=== PATIENT | female | born 1975 | race Caucasian/White ===

== ENCOUNTER 2016-08-23 06:19 | Emergency (ER) | payer SELFPAY ==
[2016-08-23] MEDS ORDERED: Ketorolac 30 MG/ML SDV IVPUSH ONE (06:30)
--- NOTE | 2016-08-23 06:38 | EDM.PDOC ---
<Edward Colon - Last Filed: 08/23/16 06:33> ED HPI GENERAL MEDICAL PROBLEM - General Chief Complaint: Lower Extremity Injury/Pain Stated Complaint: HIP PAIN Time Seen by Provider: 08/23/16 06:33 Source of Information: Reports: Patient - History of Present Illness INITIAL COMMENTS - FREE TEXT/NARRATIVE: HISTORY AND PHYSICAL: History of present illness: [] Patient presents tearful and crying with 10 out of 10 right hip pain which awoke her from sleep, she denies injury or trauma Patient states she has had left and right hip pain for some time , generally requiring chiropractic adjustment, she feels as if her right hip may be"out of place"however she does have full range of motion of the hip. As no redness warmth or lesion associated with the hip, on exam she is tender over the right sacrum, at this time it is hard for her to define where the pain is originating from she denies any radiation down either leg, no footdrop or saddle anesthesia bowel or urine symptoms. She has taken 800 mg of ibuprofen last night prior to going to bed, pain was 4/ 10 at that time Again no trauma or injury denies chronic illness or disease Review of systems: As per history of present illness and below otherwise all systems reviewed and negative. Past medical history: As per history of present illness and as reviewed below otherwise noncontributory. Surgical history: As per history of present illness and as reviewed below otherwise noncontributory. Social history: No reported history of drug or alcohol abuse. Family history: As per history of present illness and as reviewed below otherwise noncontributory. Physical exam: HEENT: Atraumatic, normocephalic, pupils reactive, negative for conjunctival pallor or scleral icterus, mucous membranes moist, throat clear, neck supple, nontender, trachea midline. Lungs: Clear to auscultation, breath sounds equal bilaterally, chest nontender. Heart: S1S2, regular, negative for clicks, rubs, or JVD. Abdomen: Soft, nondistended, nontender. Negative for masses or hepatosplenomegaly. Negative for costovertebral tenderness. Pelvis: Stable nontender. Genitourinary: Deferred. Rectal: Deferred. Extremities: Atraumatic, negative for cords or calf pain. Neurovascular unremarkable. Neuro: Awake, alert, oriented. Cranial nerves II through XII unremarkable. Cerebellum unremarkable. Motor and sensory unremarkable throughout. Exam nonfocal. Diagnostics: [] Lab as below Pelvis 2 views Therapeutics: [] Toradol 30 mg IV Impression: [] Right hip pain Definitive disposition and diagnosis as appropriate pending reevaluation and review of above. bilateral hip Pain Score (Numeric/FACES): 10 - Related Data Allergies Allergy/AdvReac Type Severity Reaction Status Date / Time No Known Allergies Allergy Verified 08/23/16 06:24 Home Meds: Home Meds . [No Known Home Meds] 08/23/16 [History] Course - Vital Signs Last Recorded V/S: Last Vital Signs Temp 36.9 C 08/23/16 06:25 Pulse 79 08/23/16 06:25 Resp 20 08/23/16 06:25 BP 129/65 08/23/16 06:25 Pulse Ox 99 08/23/16 06:25 - Orders/Labs/Meds Orders: Active Orders 24 hr Category Date Time Status Pelvis 1V or 2V [CR] Stat Exams 08/23/16 06:29 Taken LUPUS ANTICOAGULANT PANEL [REF] Stat Lab 08/23/16 07:00 Ordered UA W/MICROSCOPIC [URIN] Stat Lab 08/23/16 06:44 Ordered HYDROmorphone [Dilaudid] Med 08/23/16 07:43 Once 1 mg IVPUSH ONETIME ONE Ondansetron [Zofran] Med 08/23/16 07:44 Once 4 mg IVPUSH ONETIME ONE Medication Orders Hydromorphone HCl (Dilaudid) 1 mg IVPUSH ONETIME ONE Stop: 08/23/16 07:44 Ondansetron HCl (Zofran) 4 mg IVPUSH ONETIME ONE Stop: 08/23/16 07:45 Labs: Laboratory Tests 08/23/16 08/23/16 08/23/16 Range/Units 06:24 06:24 06:24 WBC 8.52 (4.0-11.0) K/uL RBC 4.41 (4.30-5.90) M/uL Hgb 14.0 (12.0-16.0) g/dL Hct 41.8 (36.0-46.0) % MCV 94.8 (80.0-98.0) fL MCH 31.7 (27.0-32.0) pg MCHC 33.5 (31.0-37.0) g/dL RDW Std Deviation 46.2 (28.0-62.0) fl RDW Coeff of Alexus 13 (11.0-15.0) % Plt Count 221 (150-400) K/uL MPV 10.20 (7.40-12.00) fL Neut % (Auto) 66.4 (48.0-80.0) % Lymph % (Auto) 25.0 (16.0-40.0) % [place] % (Auto) 5.9 (0.0-15.0) % Eos % (Auto) 2.1 (0.0-7.0) % Baso % (Auto) 0.6 (0.0-1.5) % Neut # (Auto) 5.7 (1.4-5.7) K/uL Lymph # (Auto) 2.1 (0.6-2.4) K/uL [place] # (Auto) 0.5 (0.0-0.8) K/uL Eos # (Auto) 0.2 (0.0-0.7) K/uL Baso # (Auto) 0.1 (0.0-0.1) K/uL Nucleated RBC % 0.0 /100WBC Nucleated RBCs # 0 K/uL Sodium 141 (136-146) mmol/L Potassium 3.9 (3.5-5.1) mmol/L Chloride 112 H (98-110) mmol/L Carbon Dioxide 21 (21-31) mmol/L BUN 9 (6.0-23.0) mg/dL Creatinine 0.7 (0.6-1.5) mg/dL Est Cr Clr Drug Dosing 90.41 mL/min Estimated GFR (MDRD) > 60.0 ml/min Glucose 97 (60-110) mg/dL Calcium 8.4 L (8.8-10.8) mg/dL Total Bilirubin 0.4 (0.1-1.5) mg/dL AST 14 (5-40) IU/L ALT 16 (8-54) IU/L Alkaline Phosphatase 56 (40-150) C-Reactive Protein 0.03 (0.0-0.5) mg/dL Total Protein 6.5 (6.0-8.0) g/dL Albumin 3.9 (3.5-5.0) g/dL Globulin 2.6 (2.0-3.5) g/dL Albumin/Globulin Ratio 1.5 (1.3-2.8) HCG, Qual NEGATIVE (NEG) Meds: Medications Generic Name Dose Route Start Last Admin Trade Name Freq PRN Reason Stop Dose Admin Hydromorphone HCl 1 mg 08/23/16 07:43 Dilaudid IVPUSH 08/23/16 07:44 ONETIME ONE Ondansetron HCl 4 mg 08/23/16 07:44 Zofran IVPUSH 08/23/16 07:45 ONETIME ONE Discontinued Medications Generic Name Dose Route Start Last Admin Trade Name Freq PRN Reason Stop Dose Admin Ketorolac Tromethamine 30 mg 08/23/16 06:30 08/23/16 06:36 Toradol IVPUSH 08/23/16 06:31 30 mg ONETIME ONE Administration Departure - Departure Disposition: Home, Self-Care 01 Clinical Impression: Sciatica, Hip pain - Discharge Information Forms: ED Department Discharge Additional Instructions: The following information is given to patients seen in the emergency department who are being discharged to home. This information is to outline your options for follow-up care. We provide all patients seen in our emergency department with a follow-up referral. The need for follow-up, as well as the timing and circumstances, are variable depending upon the specifics of your emergency department visit. If you don't have a primary care physician on staff, we will provide you with a referral. We always advise you to contact your personal physician following an emergency department visit to inform them of the circumstance of the visit and for follow-up with them and/or the need for any referrals to a consulting specialist. The emergency department will also refer you to a specialist when appropriate. This referral assures that you have the opportunity for followup care with a specialist. All of these measure are taken in an effort to provide you with optimal care, which includes your followup. Under all circumstances we always encourage you to contact your private physician who remains a resource for coordinating your care. When calling for followup care, please make the office aware that this follow-up is from your recent emergency room visit. If for any reason you are refused follow-up, please contact the [facility] emergency department at and asked to speak to the emergency department charge nurse. [facility] Professional Building [address] [place] [address], [address] [place] [address] Hydrocodone Naprosyn Medrol as prescribed followup primary medical doctor orthopedic surgery above call to schedule appointment return as needed as discussed - My Orders Last 24 Hours: My Active Orders 08/23/16 07:00 LUPUS ANTICOAGULANT PANEL [REF] Stat 08/23/16 07:43 HYDROmorphone [Dilaudid] 1 mg IVPUSH ONETIME ONE 08/23/16 07:44 Ondansetron [Zofran] 4 mg IVPUSH ONETIME ONE - Assessment/Plan Last 24 Hours: My Active Orders 08/23/16 07:00 LUPUS ANTICOAGULANT PANEL [REF] Stat 08/23/16 07:43 HYDROmorphone [Dilaudid] 1 mg IVPUSH ONETIME ONE 08/23/16 07:44 Ondansetron [Zofran] 4 mg IVPUSH ONETIME ONE <Tacho Patel - Last Filed: 08/23/16 07:48> Review of Systems - Review of Systems Review Of Systems: ROS reveals no pertinent complaints other than HPI. Trauma Exam - Physical Exam Exam: See Below (See dictation) Course - Vital Signs Text/Narrative:: Emergency department course was unremarkable patient's CBC and chemistry were unremarkable x-ray of her pelvis was negative for any fracture dislocation or other acute finding I discussed with patient her recent history she states she didn't have a work out recently that was quite extensive and may have aggravated her hip at that time her pain on physical exam now does seem to be more localized over her sciatic notch on the right neurovascular exam is unremarkable patient is given Dilaudid and Zofran she is advised to followup and given her primary medical doctor in or call for referral she'll be discharged on hydrocodone Medrol Dosepak and Naprosyn to be used as prescribed she is to return as needed as discussed Departure - Departure Time of Disposition: 07:46 Condition: good
[2016-08-23 07:15] LABS: CHLORIDE,CL 112 mmol/L (98-110); SODIUM,NA 141 mmol/L (136-146)
[2016-08-23] MEDS ORDERED: HYDROmorphone 1 MG/ML Syringe IVPUSH ONE (07:43)
[2016-08-23] MEDS ORDERED: Ondansetron 4 MG/2 ML SDV IVPUSH ONE (07:44)
[2016-08-23 08:43] VITALS: BP 112/58
--- NOTE | 2016-08-24 13:53 | CR ---
EXAM DATE: 08/23/16 PATIENT'S AGE: 41 Patient: NADER SINGH Facility: [place], [place] Site . Site : 1975 Study: XRay Pelvis [id number]/[id number] 7:25:48 AM Ordering Physician: Lucian Leon Final Report: HISTORY: Bilateral hip pain. No known injury. Technique: Frontal view of the pelvis. Comparison: None. Findings: Hip joint space is preserved bilaterally. No fracture. Pubic symphysis and sacroiliac joints are maintained. No pathologic calcifications. Impression: Unremarkable radiograph of the pelvis. Normal hip joints. Dictated by Edward Coronel MD @ Aug 23 2016 7:34AM (Electronic Signature) Report Signed by Proxy. [facility] CRIMINALLY INSANEKirsty
== END 2016-08-23 08:38 | disposition home or self-care (01) ==
LOC: MW.ED 06:19
DX: M54.30 Sciatica, unspecified side (principal); M25.551 Pain in right hip
CPT/HCPCS: 36415; 72170; 80053; 81001; 84703; 85025; 85613; 85730; 86140; 96374; 96375; 99284; J1170; J1885; J2405

== ENCOUNTER 2017-09-10 11:40 | Emergency (ER) | payer SELFPAY ==
--- NOTE | 2017-09-10 12:26 | EDM.PDOC ---
ED HPI GENERAL MEDICAL PROBLEM - General Chief Complaint: Genitourinary Problem Stated Complaint: URINARY ISSUES Time Seen by Provider: 09/10/17 11:41 Source of Information: Reports: Patient - History of Present Illness INITIAL COMMENTS - FREE TEXT/NARRATIVE: HISTORY AND PHYSICAL: History of present illness: 42-year-old female presenting emergency department with chief complaint of dysuria 1 day. Patient states that 2 days ago she began to have some mild symptoms of dysuria and urgency. She drank plenty of water and her symptoms seemed to subside. Last night she states that she was out and drank a large amount of alcohol and thus became very dehydrated and this morning she had increased burning with urination as well as some mild lower abdominal pain. She has had urinary tract infections in the past but many years ago. Symptoms are similar. She denies any fever, flank pain, history of kidney infections or stones. Otherwise she is feeling her normal self. Patient currently denies any chest pain, palpitations, shortness of breath, syncopal episodes, focal neurologic deficits. Review of systems: As per history of present illness and below otherwise all systems reviewed and negative. Past medical history: As per history of present illness and as reviewed below otherwise noncontributory. Surgical history: As per history of present illness and as reviewed below otherwise noncontributory. Social history: No reported history of drug or alcohol abuse. Family history: As per history of present illness and as reviewed below otherwise noncontributory. Physical exam: HEENT: Atraumatic, normocephalic, pupils reactive, negative for conjunctival pallor or scleral icterus, mucous membranes moist, throat clear, neck supple, nontender, trachea midline. Lungs: Clear to auscultation, breath sounds equal bilaterally, chest nontender. Heart: S1S2, regular, negative for clicks, rubs, or JVD. Abdomen: Soft, nondistended, mild suprapubic tenderness. Negative for masses or hepatosplenomegaly. Negative for costovertebral tenderness. Pelvis: Stable nontender. Genitourinary: Deferred. Rectal: Deferred. Extremities: Atraumatic, negative for cords or calf pain. Neurovascular unremarkable. Neuro: Awake, alert, oriented. Cranial nerves II through XII unremarkable. Cerebellum unremarkable. Motor and sensory unremarkable throughout. Exam nonfocal. Diagnostics: UA/UC, hCG Therapeutics: Bactrim 160 mg by mouth twice a day Impression: Acute cystitis Plan: Urinalysis was positive for acute cystitis. This was when the patient. She had no systemic symptoms and she was given a prescription for Bactrim DS by mouth twice a day for 5 days. She was instructed to follow-up with her primary care provider and return to emergency department if she had a new or worsening symptoms. - Related Data Allergies Allergy/AdvReac Type Severity Reaction Status Date / Time No Known Allergies Allergy Verified 09/10/17 12:12 Home Meds: Home Meds . [No Known Home Meds] 08/23/16 [History] Past Medical History - Past Health History Medical/Surgical History: Denies Medical/Surgical History HEENT History: Reports: None Cardiovascular History: Reports: None Respiratory History: Reports: None Gastrointestinal History: Reports: None Genitourinary History: Reports: None [employer] History: Reports: None Musculoskeletal History: Reports: None Neurological History: Reports: None Psychiatric History: Reports: None Endocrine/Metabolic History: Reports: None Dermatologic History: Reports: None - Infectious Disease History Infectious Disease History: Reports: None - Past Surgical History Female Surgical History: Reports: None Social & Family History - Family History Family Medical History: Noncontributory - Tobacco Use Smoking Status *Q: Never Smoker - Recreational Drug Use Recreational Drug Use: No ED ROS GENERAL - Review of Systems Review Of Systems: ROS reveals no pertinent complaints other than HPI. ED EXAM, GENERAL - Physical Exam Exam: See Below Course - Vital Signs Last Recorded V/S: Last Vital Signs Temp 97.2 F 09/10/17 12:12 Pulse 94 09/10/17 12:12 Resp 18 09/10/17 12:12 BP 129/62 09/10/17 12:12 Pulse Ox 94 L 09/10/17 12:12 - Orders/Labs/Meds Orders: Active Orders 24 hr Category Date Time Status HCG QUALITATIVE,URINE [URCHEM] Stat Lab 09/10/17 12:21 Ordered UA W/MICROSCOPIC [URIN] Stat Lab 09/10/17 11:51 Ordered Labs: Laboratory Tests 09/10/17 Range/Units 11:51 Urine Color YELLOW Urine Appearance CLOUDY Urine pH 7.0 (5.0-8.0) Ur Specific [place] 1.020 (1.001-1.035) Urine Protein 100 (NEGATIVE) mg/dL Urine Glucose (UA) NEGATIVE (NEGATIVE) mg/dL Urine Ketones 40 H (NEGATIVE) mg/dL Urine Occult Blood MODERATE (NEGATIVE) Urine Nitrite NEGATIVE (NEGATIVE) Urine Bilirubin NEGATIVE (NEGATIVE) Urine Urobilinogen 0.2 (<2.0) EU/dL Ur Leukocyte Esterase LARGE (NEGATIVE) Urine RBC 10-12 (0-2/HPF) Urine WBC TO NUMEROUS TO COUNT H (0-5/HPF) Ur Epithelial Cells FEW (NONE-FEW) Urine Bacteria FEW (NEGATIVE) Departure - Departure Time of Disposition: 12:41 Disposition: Home, Self-Care 01 Condition: Good Clinical Impression: Acute cystitis Qualifiers: Hematuria presence: without hematuria Qualified Code(s): N30.00 - Acute cystitis without hematuria - Discharge Information Referrals: PCP,None [Primary Care Provider] - Forms: ED Department Discharge Additional Instructions: My general discharge The following information is given to patients seen in the emergency department who are being discharged to home. This information is to outline your options for follow-up care. We provide all patients seen in our emergency department with a follow-up referral. The need for follow-up, as well as the timing and circumstances, are variable depending upon the specifics of your emergency department visit. If you don't have a primary care physician on staff, we will provide you with a referral. We always advise you to contact your personal physician following an emergency department visit to inform them of the circumstance of the visit and for follow-up with them and/or the need for any referrals to a consulting specialist. The emergency department will also refer you to a specialist when appropriate. This referral assures that you have the opportunity for follow-up care with a specialist. All of these measure are taken in an effort to provide you with optimal care, which includes your follow-up. Under all circumstances we always encourage you to contact your private physician who remains a resource for coordinating your care. When calling for follow-up care, please make the office aware that this follow-up is from your recent emergency room visit. If for any reason you are refused follow-up, please contact the [facility] Emergency Department at and asked to speak to the emergency department charge nurse. [facility] [address] [place] [id number] [facility] [address] [place] [id number] Date antibiotics as prescribed. Return to emergency department if any new or worsening symptoms. Follow-up with her primary care provider. - My Orders Last 24 Hours: My Active Orders 09/10/17 12:21 HCG QUALITATIVE,URINE [URCHEM] Stat - Assessment/Plan Last 24 Hours: My Active Orders 09/10/17 12:21 HCG QUALITATIVE,URINE [URCHEM] Stat
[2017-09-10 19:28] VITALS: BP 125/65
== END 2017-09-10 13:22 | disposition home or self-care (01) ==
LOC: MW.ED 11:40
DX: N30.00 Acute cystitis without hematuria (principal)
CPT/HCPCS: 81001; 81025; 99283